=== PATIENT | male | born 1985 | race Two or more races ===

== ENCOUNTER 2018-03-07 15:06 | Emergency (ER) | payer MEDICARE, SELFPAY ==
[~2018-03-07] VITALS: Ht 172.7 cm; Wt 109.1 kg
[~2018-03-07 15:06] MED LIST: OLAN15TA5 PO; OLAN5TAB40 PO
[2018-03-07] MEDS ORDERED: RISP2 PO (15:23)
[2018-03-07] MEDS ORDERED: DIVA500T35 PO (15:23)
[2018-03-07] MEDS ORDERED: METF500T6 PO (15:23)
[2018-03-07 15:27] LABS: GLUCOSE,POINT OF CARE 189 MG/DL (70-110)
[2018-03-07] MEDS ORDERED: LORazepam 0.5 MG TABLET PO ONE (16:45)
[2018-03-07] MEDS ORDERED: IBUPROFEN 800 MG TABLET PO ONE (16:45)
[2018-03-07 17:31] VITALS: BP 128/86
== END 2018-03-07 17:33 | disposition home or self-care (01) ==
LOC: EDBD 15:08 → EMS 15:08
DX: K08.89 Other specified disorders of teeth and supporting structures (principal); F41.9 Anxiety disorder, unspecified; F20.9 Schizophrenia, unspecified; F12.10 Cannabis abuse, uncomplicated; F15.10 Other stimulant abuse, uncomplicated; E11.9 Type 2 diabetes mellitus without complications; Z87.891 Personal history of nicotine dependence; Z79.899 Other long term (current) drug therapy
CPT/HCPCS: 99283

== ENCOUNTER 2018-03-29 01:01 | Emergency (ER) | payer MEDICARE, OTHER ==
[~2018-03-29] VITALS: Ht 177.8 cm; Wt 104.5 kg
[~2018-03-29 01:01] MED LIST changes: +DIVA500T35 PO; +METF500T6 PO; +RISP2 PO
[2018-03-29] MEDS ORDERED: MULT1TAB70 PO (01:43)
[2018-03-29] MEDS ORDERED: METO50 PO (01:43)
[2018-03-29] MEDS ORDERED: OMEG-135 PO (01:43)
[2018-03-29] MEDS ORDERED: LISI-661 PO (01:43)
[2018-03-29] MEDS ORDERED: TRAZ-147 PO (01:43)
[2018-03-29] MEDS ORDERED: METF500T6 PO (01:43)
[2018-03-29] MEDS ORDERED: LORA0.5T2 PO (01:43)
[2018-03-29] MEDS ORDERED: DIVA500T35 PO (01:43)
[2018-03-29] MEDS ORDERED: CLON-570 PO (01:43)
[2018-03-29 02:22] LABS: BASOPHILS % (AUTO) 0.6 % (0.0-2.0); EOSINOPHILS % (AUTO) 2.6 % (1.0-6.0); HEMATOCRIT 44.5 % (41-53); HEMOGLOBIN 15.6 g/dL (13.5-17.5); LYMPHOCYTES # (AUTO) 4.2 K/uL (1.0-4.8); LYMPHOCYTES % (AUTO) 42.7 % (22.0-44.0); MEAN CORPUSCULAR HEMOGLOBIN 31.9 pg (26.0-34.0); MEAN CORPUSCULAR HGB CONC 35.1 G/dL (31.0-37.0); MEAN CORPUSCULAR VOLUME 91 fL (80-100); MONOCYTES # (AUTO) 0.8 K/uL (0.1-1.0); MONOCYTES % (AUTO) 8.5 % (2.0-9.0); NEUTROPHILS # (AUTO) 4.5 K/uL (1.8-7.7); NEUTROPHILS % (AUTO) 45.6 % (40.0-70.0); RED BLOOD CELL COUNT(AUTO) 4.89 MIL/uL (4.50-5.90); RED CELL DISTRIBUTION WIDTH 13.3 % (11.5-14.5)
[2018-03-29 02:30] LABS: ANION GAP 6 mmol/L (8-16); CALCIUM, TOTAL 8.9 mg/dL (8.8-10.5); CARBON DIOXIDE 28 mmol/L (22-29); CHLORIDE 105 mmol/L (98-107); CREATININE 0.91 mg/dL (0.60-1.30); GLOMERULAR FILTR. RATE CALC > 60 mL/min (>60); GLUCOSE,RANDOM 111 mg/dL (70-110); POTASSIUM 4.6 mmol/L (3.5-5.1); SODIUM SERUM 139 mmol/L (136-145); UREA NITROGEN, BLOOD 12 mg/dL (7-18)
[2018-03-29 02:36] LABS: ALANINE AMINOTRANSFERASE 106 U/L (12-78); ALBUMIN 3.6 g/dL (3.4-5.0); ALKALINE PHOSPHATASE 93 U/L (46-116); ASPARTATE AMINOTRANSFERASE 41 U/L (15-37); BILIRUBIN,TOTAL 0.2 mg/dL (0.1-1.0); LIPASE 144 U/L (73-393); TOTAL PROTEIN, SERUM 7.8 g/dL (6.4-8.2)
[2018-03-29 02:44] LABS: APPEARANCE,URINE CLEAR (CLEAR); BILIRUBIN,URINE NEGATIVE (NEGATIVE); GLUCOSE, URINE (UA) NEGATIVE (NEGATIVE); KETONES,URINE NEGATIVE (NEGATIVE); LEUKOCYTE ESTERASE ,URINE NEGATIVE (NEGATIVE); NITRATE,URINE NEGATIVE (NEGATIVE); OCCULT BLOOD,URINE NEGATIVE (NEGATIVE); PROTEIN,URINE NEGATIVE (NEGATIVE); UROBILINOGEN,URINE 0.2 mg/dL (<=1.0)
[2018-03-29 02:52] LABS: PLATELET COUNT (AUTO) 163 K/uL (150-450)
[2018-03-29 02:53] LABS: PLATELET MORPHOLOGY COMMENT GIANT PLTS PRESENT
[2018-03-29 04:39] VITALS: BP 142/71
== END 2018-03-29 04:41 | disposition home or self-care (01) ==
LOC: EMS 01:02
DX: K76.0 Fatty (change of) liver, not elsewhere classified (principal); E11.65 Type 2 diabetes mellitus with hyperglycemia; F41.9 Anxiety disorder, unspecified; F20.9 Schizophrenia, unspecified; F12.90 Cannabis use, unspecified, uncomplicated; F19.90 Other psychoactive substance use, unspecified, uncomplicated; Z87.891 Personal history of nicotine dependence
CPT/HCPCS: 99284

== ENCOUNTER 2018-04-21 23:07 | Emergency (ER) | payer MEDICARE, OTHER ==
[~2018-04-21] VITALS: Ht 175.3 cm; Wt 120.0 kg
[~2018-04-21 23:07] MED LIST changes: +CLON-570 PO; +LISI-661 PO; +LORA0.5T2 PO; +METO50 PO; +MULT1TAB70 PO; -OLAN15TA5 PO; +OMEG-135 PO; +TRAZ-147 PO
[2018-04-21] MEDS ORDERED: FAMO20 PO (23:24)
[2018-04-21] MEDS ORDERED: METO50 PO (23:24)
[2018-04-21] MEDS ORDERED: DIVA500T35 PO (23:24)
[2018-04-21 23:37] VITALS: BP 145/80
[2018-04-22 00:09] LABS: BASOPHILS % (AUTO) 1.2 % (0.0-2.0); EOSINOPHILS % (AUTO) 2.6 % (1.0-6.0); HEMATOCRIT 43.4 % (41-53); HEMOGLOBIN 15.7 g/dL (13.5-17.5); LYMPHOCYTES % (AUTO) 38.9 % (22.0-44.0); MEAN CORPUSCULAR HEMOGLOBIN 32.1 pg (26.0-34.0); MEAN CORPUSCULAR HGB CONC 36.1 G/dL (31.0-37.0); MEAN CORPUSCULAR VOLUME 89 fL (80-100); MONOCYTES # (AUTO) 0.9 K/uL (0.1-1.0); MONOCYTES % (AUTO) 8.6 % (2.0-9.0); NEUTROPHILS % (AUTO) 48.7 % (40.0-70.0); PLATELET COUNT (AUTO) 172 K/uL (150-450); RED BLOOD CELL COUNT(AUTO) 4.89 MIL/uL (4.50-5.90); RED CELL DISTRIBUTION WIDTH 13.1 % (11.5-14.5)
[2018-04-22 00:15] LABS: ANION GAP 7 mmol/L (8-16); CALCIUM, TOTAL 8.6 mg/dL (8.8-10.5); CARBON DIOXIDE 26 mmol/L (22-29); CHLORIDE 106 mmol/L (98-107); CREATININE 0.81 mg/dL (0.60-1.30); GLOMERULAR FILTR. RATE CALC > 60 mL/min (>60); GLUCOSE,RANDOM 91 mg/dL (70-110); POTASSIUM 4.1 mmol/L (3.5-5.1); SODIUM SERUM 139 mmol/L (136-145); UREA NITROGEN, BLOOD 9 mg/dL (7-18)
[2018-04-22 00:21] LABS: ALANINE AMINOTRANSFERASE 114 U/L (12-78); ALBUMIN 3.5 g/dL (3.4-5.0); ALKALINE PHOSPHATASE 100 U/L (46-116); ASPARTATE AMINOTRANSFERASE 46 U/L (15-37); BILIRUBIN,TOTAL 0.2 mg/dL (0.1-1.0); TOTAL PROTEIN, SERUM 7.5 g/dL (6.4-8.2); VALPROIC ACID 13 mcg/mL (50-100)
[2018-04-22 01:02] LABS: AMPHET/METH SCREEN,URINE NEGATIVE (NEGATIVE); BARBITURATE SCREEN, URINE NEGATIVE (NEGATIVE); BENZODIAZEPINES SCREEN,URINE NEGATIVE (NEGATIVE); CANNABINOID SCREEN,URINE NEGATIVE (NEGATIVE); COCAINE SCREEN,URINE NEGATIVE (NEGATIVE); METHADONE SCREEN, URINE NEGATIVE (NEGATIVE); OPIATE SCREEN,URINE NEGATIVE (NEGATIVE); PHENCYCLIDINE SCREEN,URINE NEGATIVE (NEGATIVE)
== END 2018-04-22 03:00 | disposition left against medical advice (07) ==
LOC: EMS 23:08
DX: R06.02 Shortness of breath (principal); Z53.21 Procedure and treatment not carried out due to patient leaving prior to being seen by health care provider
CPT/HCPCS: 36415; 80053; 80164; 80307; 85025; G0480

== ENCOUNTER 2018-05-10 00:19 | Emergency (ER) | payer MEDICARE, OTHER ==
[~2018-05-10] VITALS: Ht 172.7 cm; Wt 90.9 kg
[~2018-05-10 00:19] MED LIST changes: +DIVA-78 PO; -DIVA500T35 PO; +FAMO20 PO; -RISP2 PO; -TRAZ-147 PO; +TRAZ-186 PO
[2018-05-10 00:24] VITALS: BP 156/94
== END 2018-05-10 03:11 | disposition left against medical advice (07) ==
LOC: EMS 00:20
DX: R06.02 Shortness of breath (principal); E11.9 Type 2 diabetes mellitus without complications; F17.210 Nicotine dependence, cigarettes, uncomplicated; Z53.21 Procedure and treatment not carried out due to patient leaving prior to being seen by health care provider

== ENCOUNTER 2018-06-08 02:56 | Emergency (ER) | payer MEDICARE, OTHER ==
[~2018-06-08] VITALS: Ht 175.3 cm; Wt 108.8 kg
[2018-06-08 03:04] VITALS: BP 118/76
[2018-06-08 03:19] LABS: GLUCOSE,POINT OF CARE 112 MG/DL (70-110)
== END 2018-06-08 04:00 | disposition left against medical advice (07) ==
LOC: EMS 02:57
DX: R07.9 Chest pain, unspecified (principal); F41.9 Anxiety disorder, unspecified; F20.9 Schizophrenia, unspecified; E11.9 Type 2 diabetes mellitus without complications; F17.210 Nicotine dependence, cigarettes, uncomplicated; Z53.21 Procedure and treatment not carried out due to patient leaving prior to being seen by health care provider
CPT/HCPCS: 93005